=== PATIENT | female | born 1950 | race Caucasian/White ===

== ENCOUNTER 2018-09-05 08:24 | Emergency (ER) | payer OTHER ==
[~2018-09-05] VITALS: Ht 167.6 cm; Wt 95.3 kg
[2018-09-05] MEDS ORDERED: CYMBALTA20 MG PO (08:38)
[2018-09-05] MEDS ORDERED: FEMARA2.5 MG PO (08:38)
[2018-09-05] MEDS ORDERED: CALCIUM 600 +1 EAC1 PO (08:39)
[2018-09-05] MEDS ORDERED: CONTRAVE ER 8-1 EACH PO (08:39)
[2018-09-05] MEDS ORDERED: LISINOPRIL5 MG PO (08:39)
[2018-09-05] MEDS ORDERED: TRAMADOL 50 MG50 MG PO (10:29)
[2018-09-05 10:49] VITALS: BP 137/75
== END 2018-09-05 10:45 | disposition home or self-care (01) ==
LOC: ER 08:24
DX: S01.511A Laceration without foreign body of lip, initial encounter (principal); Z88.2 Allergy status to sulfonamides; W01.0XXA Fall on same level from slipping, tripping and stumbling without subsequent striking against object, initial encounter; Y93.89 Activity, other specified; Y92.89 Other specified places as the place of occurrence of the external cause; Y99.8 Other external cause status